=== PATIENT | male | born 1975 | race American Indian/Alaskan Native ===

== ENCOUNTER 2021-02-11 21:37 | Emergency (ER) | payer SELFPAY ==
[2021-02-11 21:56] VITALS: BP 134/86
[2021-02-11] MEDS ORDERED: TETANUS,DIPH,PERTUSS(ACELL) VACCINE 0.5 ML SYRINGE IM ONE (22:02)
[2021-02-11] MEDS ORDERED: traMADol 50 MG TAB PO ONE (22:03)
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
== END 2021-02-11 22:55 | disposition home or self-care (01) ==
LOC: ED 21:37
DX: S51.011A Laceration without foreign body of right elbow, initial encounter (principal); Z79.899 Other long term (current) drug therapy; W22.8XXA Striking against or struck by other objects, initial encounter; Y93.89 Activity, other specified; Y92.89 Other specified places as the place of occurrence of the external cause; Y99.8 Other external cause status
CPT/HCPCS: 90471; 90715; 99282